=== PATIENT | female | born 1970 | race Caucasian/White ===

== ENCOUNTER 2017-01-22 09:33 | Emergency (ER) | payer BC ==
[2017-01-22 09:04] LABS: BASOPHILS 0.2 %; BASOPHILS ABSOLUTE 0.04 10/3/uL (0.0-0.16); EOSINOPHILS 1.1 %; EOSINOPHILS ABSOLUTE 0.26 10/3/uL (0.0-0.53); HEMATOCRIT 44.8 % (36.0-48.0); HEMOGLOBIN 15.3 g/dL (12.0-16.0); IMMATURE GRANULOCYTES 0.3 %; IMMATURE GRANULOCYTES ABSOLUTE 0.08 10/3/uL (0.0-0.11); LYMPHOCYTES 8.4 %; LYMPHOCYTES ABSOLUTE 1.99 10/3/uL (0.67-4.30); MEAN CORPUSCULAR HEMOGLOB 29.7 pg (26.0-34.0); MEAN PLATELET VOLUME 9.1 fL (9.2-13.0); MONOCYTES 6.8 %; NEUTROPHILS 83.2 %; NEUTROPHILS ABSOLUTE 19.64 10/3/uL (2.02-8.40); PLATELET COUNT 439 10/3/uL (150-400); RBC DISTRIBUTION WIDTH 13.5 % (12.0-16.0); RED CELL COUNT 5.15 10/6/uL (4.0-5.6)
[2017-01-22 09:08] LABS: ER CBC TAT 0 Hrs 13 Mins; MANUAL DIFF NO %; MEAN CORPUS HGB CONC 34.2 g/dL (32.0-36.0); WHITE BLOOD CELLS 23.6 10/3/uL (4.5-10.5)
[2017-01-22 09:20] LABS: ALKALINE PHOSPHATASE 84 U/L (45-117); BUN (BLOOD UREA NITROGEN) 30 MG/DL (6-23); CALCIUM, SERUM 9.1 MG/DL (8.5-10.4); CHLORIDE, SERUM 103 MMOL/L (96-112); CO2 (CARBON DIOXIDE) 23 MMOL/L (24-34); CREATININE 1.81 MG/DL (0.55-1.02); GFR AFRICAN AMERICAN 38 ML/MIN (>=60); GFR NON AFRICAN AMERICAN 32 ML/MIN (>=60); GLUCOSE, SERUM 138 MG/DL (60-99); POTASSIUM, SERUM 4.2 MMOL/L (3.5-5.3); SGOT(AST) 28 U/L (5-40); SGPT(ALT) 51 U/L (5-65); SODIUM, SERUM 139 MMOL/L (135-148); TOTAL BILIRUBIN 0.3 MG/DL (0-1.2)
[~2017-01-22 09:33] MED LIST: ALLEGRA180 PO; ASA5GR PO; BLACK COHOSH PO; BUSPAR15 M1 PO; DORYX100 MG PO; FERROUS SULF325 M1 PO; GLUCPH PO; GLYXAMBI PO; HYDROCHLOROT25 MG PO; LOP50 PO; LOTE5 PO; LOTENSIN HCT1 TA1 PO; LOTENSIN HCT1 TA2 PO; MAX25 PO; PRAVAC PO; PRILO PO; SUPER B COMP OR; T PO; TEARS NATURA OPH; VESICARE5 PO; VITAMI13 PO; VITAMIN D31000 UNIT PO
[2017-01-22 09:44] LABS: ASCORBIC ACID (UR NOT ORDER) NEG (NEG); BILIRUBIN, URINE NEGATIVE (NEG); ER URINALYSIS TAT 0 Hrs 14 Mins; KETONE, URINE TRACE MG/DL (NEG); LEUKOCYTE ESTERASE(NOT OR MOD (NEG); NITRITE (URINE) NEG (NEG); WBC (NOT ORDERED) (RFLEX) 17 (0-5)
[2017-04-29] MEDS ORDERED: M-END PE PO (09:39)
[2017-04-29] MEDS ORDERED: JANUVIA100 MG PO (09:40)
[2017-04-29] MEDS ORDERED: NABUMETONE750 MG PO (09:41)
[2017-04-29] MEDS ORDERED: OMNICEF300 PO (09:41)
[2017-04-29] MEDS ORDERED: PRINZIDE1 TAB PO ×2 (09:42→09:56)
[2017-04-29] MEDS ORDERED: TANZEUM IM (09:43)
[2017-04-29] MEDS ORDERED: FLUCON150 PO (09:44)
[2017-04-29] MEDS ORDERED: MONUROL PO (09:46)
[2017-04-29] MEDS ORDERED: GLUCPH PO (09:48)
[2017-04-29] MEDS ORDERED: GLYXAMBI 25 MG1 EACH PO (09:54)
[2017-04-29] MEDS ORDERED: HYGROTON 25 MG25 MG (09:54)
[2017-04-29] MEDS ORDERED: PRAV10 PO (09:55)
[2017-04-29] MEDS ORDERED: VESICARE5 PO (09:56)
[2017-04-29] MEDS ORDERED: VOLT25 PO (09:56)
[2017-04-29] MEDS ORDERED: BIAXIN125 MG/5 M PO (09:58)
[2017-04-29] MEDS ORDERED: AT10 PO (10:00)
[2017-04-29] MEDS ORDERED: XODOL 10-300 T1 EACH PO (10:01)
[2017-04-29] MEDS ORDERED: LOP50 PO (10:02)
[2017-04-29] MEDS ORDERED: METHENAM HIP1 GM PO (10:03)
[2017-04-29] MEDS ORDERED: MOBIC15 MG PO (10:03)
[2017-04-29] MEDS ORDERED: DETROL1 PO (10:04)
[2017-04-29] MEDS ORDERED: DIABET2.5 PO (10:05)
[2017-04-29] MEDS ORDERED: IBU800 PO (10:05)
[2017-04-29] MEDS ORDERED: LOTE10 PO (10:06)
[2017-04-29] MEDS ORDERED: TRAZODONE150 MG PO (10:06)
[2017-04-29] MEDS ORDERED: TRADJENTA5 MG PO (10:07)
[2017-04-29] MEDS ORDERED: MACROBID PO (10:08)
[2017-04-29] MEDS ORDERED: CEFT2 PO (10:09)
[2017-04-29] MEDS ORDERED: ZOFRAN4 PO (10:10)
[2017-04-29] MEDS ORDERED: K500 PO (10:12)
[2017-04-29] MEDS ORDERED: FLONASE NAS (10:12)
== END 2017-01-22 12:55 | disposition home or self-care (01) ==
LOC: ER 09:33
PROVIDERS: Emergency Medicine
DX: N12 Tubulo-interstitial nephritis, not specified as acute or chronic (principal); I10 Essential (primary) hypertension; E11.9 Type 2 diabetes mellitus without complications; Z88.2 Allergy status to sulfonamides; Z88.8 Allergy status to other drugs, medicaments and biological substances; Z79.899 Other long term (current) drug therapy
CPT/HCPCS: 74022; 74176; 80053; 81001; 83690; 85025; 87077; 87086; 87186; 96374; 96375; 99284; J2405